=== PATIENT | female | born 1995 | race Caucasian/White ===

== ENCOUNTER 2017-11-02 22:33 | Inpatient (IN) | payer OTHER, SELFPAY ==
[2017-11-02 21:06] VITALS: BMI 26.2
[2017-11-02 21:23] LABS: Bacteria 0 SEEN /hpf (None Seen); Mucous, Urine 0 SEEN /hpf (<or=2+)
[2017-11-02 21:28] LABS: Color, Urine Yellow (Yellow); Glucose, Dipstick Normal (Normal); Ketone-Dipstick 5 mg/dl (Negative); Leukocyte Esterase-Dipstick 25 /ul (Negative); Nitrite-Dipstick Negative (Negative); Occult Blood-Urine 250 /ul (Negative); Protein-Dipstick Negative (Negative); Urine Bilirubin Dipstick Negative (Negative); Urine Clarity Clear (Clear); Urine Urobilinogen Normal (Normal)
[2017-11-02 21:40] LABS: Red Blood Cells-Urine > 100 SEEN /hpf (0-5); White Blood Cells 0-5 SEEN /hpf (0-5)
[2017-11-02 21:41] LABS: Squamous Epithelial Cells - UA 0-5 SEEN /hpf (5-10)
[2017-11-02] MEDS: Lactated Ringers 1,000 ML 50 ML IV (22:45)
[2017-11-02 23:21] LABS: Hematocrit 37.2 % (37-47); Hemoglobin 12.5 g/dl (12.0-15.0); Mean Corp Hgb Conc 33.6 g/gl (32-36); Mean Corpuscular Hgb 29.3 pg (27.0-32.0); Mean Corpuscular Volume 87.1 fL (81-99); Mean Platelet Vol. 9.9 fl (6.2-12.0); Platelet Count 218 K/mm3 (150-450); RBC Distribution Width CV 15.4 % (11.6-14.6); RBC Distribution Width SD 48.6 fl (35.1-43.9); Red Blood Count 4.27 M/mm3 (4.2-5.4); Scan Indicated on CBC? Y/N NO; White Blood Count 14.9 K/mm3 (4.4-11.0)
[2017-11-02] MEDS: DiphenhydrAMINE 50 MG/ML Syringe IV (23:30)
--- NOTE | 2017-11-02 23:42 | PCM.HP.OB ---
- Problem List (1) Positive GBS test Status: Acute (2) Active labor at term Status: Acute History Date of Admission: 11/02/17 Final DAVID: 11/06/17 Final DAVID Source: LMP Gestational age: 39 Weeks and 3 Days History of this : Patient presented to L+D reporting decreased movement and increased pelvic pressure and cramping. Patient found to be 5/80/-2 by SVE and donna q 3-5 minutes on tocometer. 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 since 36 weeks gestation Otherwise noncontributory Allergies cefdinir [From Omnicef] Allergy (Intermediate, Verified 11/02/17 21:07) Hives Vancomycin (on this admission was noted as a allergy) - Hives Current Medications Acetaminophen (Tylenol) 325 - 650 mg PO Q4H PRN PRN PRN Reason: PAIN OR FEVER >100.4F Al Hydroxide/Mg Hydroxide (Mylanta Ii) 15 - 30 ml PO Q4H PRN PRN PRN Reason: INDIGESTION Citric Acid/Sodium Citrate (Bicitra) 30 ml PO UD PRN Diphenhydramine HCl (Benadryl) 50 mg IV X1 ONE Stop: 11/02/17 23:38 Vancomycin HCl (Vancomycin) 1,000 mg in 200 mls @ 200 mls/hr IV Q12H [facility] Last Admin: 11/02/17 22:57 Dose: 200 mls/hr Lactated Ringer's () 1,000 mls @ 50 mls/hr IV .Q20H SCOTT[facility] Nalbuphine HCl (Nubain) 5 - 10 mg IV Q3H PRN PRN PRN Reason: PAIN (4-10/10) Ondansetron HCl (Zofran) 4 mg IV Q8H PRN PRN PRN Reason: NAUSEA Promethazine HCl (Phenergan Iv) 6.25 - 12.5 mg IV Q4H PRN PRN; Protocol PRN Reason: IF NAUSEA PERSISTS Sodium Chloride () 5 - 15 ml IV UD [facility] Smoking Status: Never smoker Alcohol: None Drug Use: none Number of Fetus(es): 1 Review of Systems Constitutional: Denies: Chills, Fever, Weight Change HEENT: Denies: Head Aches, Sinus Congestion, Sinus Drainage Cardiovascular: Denies: Chest Pain, Palpitations Respiratory: Denies: Cough, Shortness of breath at rest, Sputum production Gastrointestinal: Denies: Abdominal Pain, Nausea, Vomiting Genitourinary: Denies: Dysuria, Hematuria Gynecological: Reports: Vaginal bleeding - Bloody show noted. Denies: Vaginal discharge Musculoskeletal: Denies: Joint Pain, Joint Tenderness Skin: Denies: Rash, Wounds Neurological: Denies: Numbness, Tingling, Focal weakness Psychiatric: Denies: Anxiety, Depression, Homicidal Ideations, Suicidal Ideations Hematologic/ Lymphatic: Denies: Easy Bruising, Easy Bleeding Physical Exam Vitals: Seeing Nursing Chart for Vital Signs See [facility] Chart for Labs FHT baseline 125, moderate variability, + accels, no decels Ctx q 3-4 minutes, palpate moderate to strong General: Alert, Oriented x3, No apparent distress Cardiovascular: Regular rate, Regular Rhythm Lungs: Clear to auscultation Abdomen: Bowel Sounds Present, Gravid, Appropriate for Gestational Age Extremities:: No edema Presentation: Cephalic Cervix Dilation (cm): 6 - By nursing exam Station: -2 Effacement (%): 80 Assessment/Plan Active and Suspected Problems Positive GBS test (Acute) Active labor at term (Acute) A: 22 y/o @ 39.3 weeks, Active LAbor, Cat I FHT, GBS positive in urine P: 1) Patient is allergic to Omnicef (HIVES) - no culture and sensitivity done. Vancomycin 1 g IV q 12 hours ordered, patient had allergic reaction HIVES that started with administration of Vancomycin. Vancomycin stopped, 50mg IVP Benadryl given 2) Expectant Labor Management at this time 3) If slowed labor or protracted labor, plan AROM 4) Patient desires NCB at this time - encourage movement, position changes and use of hydrotherapy 5) Reassess cervix in 2-4 hours or with change in maternal status. Cherrie Kidd CNM
--- NOTE | 2017-11-02 23:56 | HP.PCM_ITS ---
- Problem List (1) Positive GBS test Status: Acute (2) Active labor at term Status: Acute History Date of Admission: 11/02/17 Final DAVID: 11/06/17 Final DAVID Source: LMP Gestational age: 39 Weeks and 3 Days History of this : Patient presented to L+D reporting decreased movement and increased pelvic pressure and cramping. Patient found to be 5/80/-2 by SVE and donna q 3-5 minutes on tocometer. 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 since 36 weeks gestation Otherwise noncontributory Allergies cefdinir [From Omnicef] Allergy (Intermediate, Verified 11/02/17 21:07) Hives Vancomycin (on this admission was noted as a allergy) - Hives Current Medications Acetaminophen (Tylenol) 325 - 650 mg PO Q4H PRN PRN PRN Reason: PAIN OR FEVER >100.4F Al Hydroxide/Mg Hydroxide (Mylanta Ii) 15 - 30 ml PO Q4H PRN PRN PRN Reason: INDIGESTION Citric Acid/Sodium Citrate (Bicitra) 30 ml PO UD PRN Diphenhydramine HCl (Benadryl) 50 mg IV X1 ONE Stop: 11/02/17 23:38 Vancomycin HCl (Vancomycin) 1,000 mg in 200 mls @ 200 mls/hr IV Q12H [facility] Last Admin: 11/02/17 22:57 Dose: 200 mls/hr Lactated Ringer's () 1,000 mls @ 50 mls/hr IV .Q20H [facility] Nalbuphine HCl (Nubain) 5 - 10 mg IV Q3H PRN PRN PRN Reason: PAIN (4-10/10) Ondansetron HCl (Zofran) 4 mg IV Q8H PRN PRN PRN Reason: NAUSEA Promethazine HCl (Phenergan Iv) 6.25 - 12.5 mg IV Q4H PRN PRN; Protocol PRN Reason: IF NAUSEA PERSISTS Sodium Chloride () 5 - 15 ml IV UD [facility] Smoking Status: Never smoker Alcohol: None Drug Use: none Number of Fetus(es): 1 Review of Systems Constitutional: Denies: Chills, Fever, Weight Change HEENT: Denies: Head Aches, Sinus Congestion, Sinus Drainage Cardiovascular: Denies: Chest Pain, Palpitations Respiratory: Denies: Cough, Shortness of breath at rest, Sputum production Gastrointestinal: Denies: Abdominal Pain, Nausea, Vomiting Genitourinary: Denies: Dysuria, Hematuria Gynecological: Reports: Vaginal bleeding - Bloody show noted. Denies: Vaginal discharge Musculoskeletal: Denies: Joint Pain, Joint Tenderness Skin: Denies: Rash, Wounds Neurological: Denies: Numbness, Tingling, Focal weakness Psychiatric: Denies: Anxiety, Depression, Homicidal Ideations, Suicidal Ideations Hematologic/ Lymphatic: Denies: Easy Bruising, Easy Bleeding Physical Exam Vitals: Seeing Nursing Chart for Vital Signs See [facility] Chart for Labs FHT baseline 125, moderate variability, + accels, no decels Ctx q 3-4 minutes, palpate moderate to strong General: Alert, Oriented x3, No apparent distress Cardiovascular: Regular rate, Regular Rhythm Lungs: Clear to auscultation Abdomen: Bowel Sounds Present, Gravid, Appropriate for Gestational Age Extremities:: No edema Presentation: Cephalic Cervix Dilation (cm): 6 - By nursing exam Station: -2 Effacement (%): 80 Assessment/Plan Active and Suspected Problems Positive GBS test (Acute) Active labor at term (Acute) A: 22 y/o @ 39.3 weeks, Active LAbor, Cat I FHT, GBS positive in urine P: 1) Patient is allergic to Omnicef (HIVES) - no culture and sensitivity done. Vancomycin 1 g IV q 12 hours ordered, patient had allergic reaction HIVES that started with administration of Vancomycin. Vancomycin stopped, 50mg IVP Benadryl given 2) Expectant Labor Management at this time 3) If slowed labor or protracted labor, plan AROM 4) Patient desires NCB at this time - encourage movement, position changes and use of hydrotherapy 5) Reassess cervix in 2-4 hours or with change in maternal status. Cherrie Kidd CNM
[2017-11-03] MEDS: Lactated Ringers 1,000 ML 50 ML IV ×2 (00:46→05:41)
--- NOTE | 2017-11-03 04:24 | PCM.PN.BLA ---
Progress Note S: Patient rested throughout the night after Benadryl administration. Patient then tried sitting in the tub. Contractions were perceived by nursing staff to have spaced out. Decision made to do SVE at this time. Patient's family remains at bedside providing support for patient. O: VSS, Afebrile FHT baseline 135, moderate variability, + accels, no decels Ctx q 5-7 minutes, palpate moderate to strong SVE = 6/80/-1, unchanged from last exam. BBOW A: 22 y/o , Protracted Active Phase of Labor, Category I FHT P: 1) Options for labor progression discussed including natural methods (movement, position changes, etc), AROM or initiation of pitocin. R/B of each option discussed. 2) Patient elects AROM with ambulation - AROM for small clear fluid noted 3) Encourage ambulation, PO hydration. Patient may use tub after AROM completed PRN. 4) Repeat SVE in 2-4 hours time or PRN Cherrie Kidd CNM
--- NOTE | 2017-11-03 04:31 | PN_ITS ---
Progress Note S: Patient rested throughout the night after Benadryl administration. Patient then tried sitting in the tub. Contractions were perceived by nursing staff to have spaced out. Decision made to do SVE at this time. Patient's family remains at bedside providing support for patient. O: VSS, Afebrile FHT baseline 135, moderate variability, + accels, no decels Ctx q 5-7 minutes, palpate moderate to strong SVE = 6/80/-1, unchanged from last exam. BBOW A: 22 y/o , Protracted Active Phase of Labor, Category I FHT P: 1) Options for labor progression discussed including natural methods ( movement, position changes, etc), AROM or initiation of pitocin. R/B of each option discussed. 2) Patient elects AROM with ambulation - AROM for small clear fluid noted 3) Encourage ambulation, PO hydration. Patient may use tub after AROM completed PRN. 4) Repeat SVE in 2-4 hours time or PRN Cherrie Kidd CNM
--- NOTE | 2017-11-03 05:36 | PCM.PN.BLA ---
Progress Note Addendum: Update from nursing staff, patient is now 9cm and feeling increasing urge to bear down. Family remains at bedside supporting patient. PAtient coping well with contractions. Will continue expectant management. Cherrie Kidd CNM
--- NOTE | 2017-11-03 06:32 | PCM.PN.BLA ---
Progress Note Patient starting to feel urge to bear down, SVE = 9.5/100/0 to +1 with pushing effort. Patient's family and FOB remain at bedside providing support. Patient in labor tub and rocking with contractions. Patient reporting I want something for pain. Discussion about pain management options at this juncture of labor discussed. Discussed that labor likely will not get more intense than it is currently and that there are limitations with epidural where she may not get full effect of the medication at this time of labor. Patient reports an understanding. Has decided to continue in labor tub at this time breathing and spontaneously bearing down when she has an urge. Anticipate . Cherrie Kidd CNM
[2017-11-03] MEDS: Oxytocin 10 UNITS/ML Vial IM (08:14)
--- NOTE | 2017-11-03 08:52 | PCM.OB.VAG ---
- Problem List (1) Positive GBS test Status: Resolved (2) Active labor at term Status: Resolved (3) Shoulder dystocia during labor and delivery, delivered Status: Resolved (4) Perineal laceration during delivery, delivered Status: Resolved Vaginal Delivery Maternal Presentation: Active Labor Patient presented last night at 39.3wks reporting decreased movement, cramping and pelvic pressure. Patient was found to be 5/80/-2 and then made cervical change to 6/80/-2. Patient labor course was uncomplicated. Amniotic Membrane Rupture Type: Artificial Amniotic Fluid Description: Clear Final DAVID: 11/06/17 Gestational age: 39 Weeks and 4 Days doctor who attended delivery (if requested by OB): Viktoria Hairston Date of Procedure: 11/03/17 Pre-Operative Diagnosis: Active Labor Post-Operative Diagnosis: with Shoulder Dystocia Surgery/ Procedure Performed: Spontaneous Vaginal Delivery Type of Anesthesia: None, Local with 1% lidocaine Description of Procedure: Patient pushed well in left side-lying position to crown. Head delivered atraumatically followed by a delay of delivery of shoulders. Attempt of Etienne with Suprapubic pressure by nursing staff, no resolution. Patient flipped to H+K position and first attempt at delivery of posterior arm made that was unsuccessful. Patient flipped back to Etienne with suprapubic pressure. At this point additional nursing and OB provider assistance called to delivery. Dr. Syed AMATO and Nupur Parrish CNM to room. Lt. Mediolateral episiotomy cut and [place] with delivery of posterior arm yielded delivery of baby. Total time elapsed 2 minutes 4 seconds. See Shoulder Dystocia sheet. Terminal meconium noted. initially with poor tone and color. No evidence of respirations. Umbilical cord immediately clamped and cut and baby taken to warmer for evaluation and resuscitative measures. Apgars 6 and 8. Cord gases sent. Weight pending. Placenta delivered spontaneously via Stewart mechanism intact with 3VC. FF midline 1FB below umbilicus to massage. 10 U IM pitocin given as patient's IV came out during labor. Upon inspection of vaginal vault deep 2nd degree vaginal/perineal laceration. Reinforcement of rectal sphincter done by Dr. Syed AMATO, remainder of repair done in the usual fashion under Nitrous Oxide analgesia and using 2 and 3-0 vicryl suture respectively and 1% Lidocaine. Sponge and needle count correct. Vaginal sweep negative. [id number] and bonding initiated. Ice pack to perineum. encouraged. Cherrie YUSUFM Presentation: Vertex Placental Delivery Description: Spontaneous Placenta Disposition: [facility] Cord Vessel Description: 3 Vessels Cord Gases drawn per routine: ABG, VBG Cord Entanglement: None Estimated Blood Loss: 250 A gender: Female (1 minute): 6 (5 minute): 8 Episiotomy Description: Left Mediolateral, Perineal Extension/lac, 2nd degree, 3rd degree - Deep 2nd degree laceration, reinforcement of rectal sphincter by Dr. Lynch Laceration: Vaginal Extension/lac, 2nd degree Medications given after delivery: - - IM Pitocin Complications: - - Shoulder Dystocia - see Shoulder Dystocia Sheet
--- NOTE | 2017-11-03 09:14 | OP.PCM_ITS ---
- Problem List (1) Positive GBS test Status: Resolved (2) Active labor at term Status: Resolved (3) Shoulder dystocia during labor and delivery, delivered Status: Resolved (4) Perineal laceration during delivery, delivered Status: Resolved Vaginal Delivery Maternal Presentation: Active Labor Patient presented last night at 39.3wks reporting decreased movement, cramping and pelvic pressure. Patient was found to be 5/80/-2 and then made cervical change to 6/80/-2. Patient labor course was uncomplicated. Amniotic Membrane Rupture Type: Artificial Amniotic Fluid Description: Clear Final DAVID: 11/06/17 Gestational age: 39 Weeks and 4 Days doctor who attended delivery (if requested by OB): Viktoria Hairston Date of Procedure: 11/03/17 Pre-Operative Diagnosis: Active Labor Post-Operative Diagnosis: with Shoulder Dystocia Surgery/ Procedure Performed: Spontaneous Vaginal Delivery Type of Anesthesia: None, Local with 1% lidocaine Description of Procedure: Patient pushed well in left side-lying position to crown. Head delivered atraumatically followed by a delay of delivery of shoulders. Attempt of Etienne with Suprapubic pressure by nursing staff, no resolution. Patient flipped to H+K position and first attempt at delivery of posterior arm made that was unsuccessful. Patient flipped back to Etienne with suprapubic pressure. At this point additional nursing and OB provider assistance called to delivery. Dr. Syed AMATO and Nupur Parrish CNM to room. Lt. Mediolateral episiotomy cut and [place] with delivery of infant posterior arm yielded delivery of baby. Total time elapsed 2 minutes 4 seconds. See Shoulder Dystocia sheet. Terminal meconium noted. Infant initially with poor tone and color. No evidence of respirations. Umbilical cord immediately clamped and cut and baby taken to warmer for evaluation and resuscitative measures. Apgars 6 and 8. Cord gases sent. Weight pending. Placenta delivered spontaneously via Stewart mechanism intact with 3VC. FF midline 1FB below umbilicus to massage. 10 U IM pitocin given as patient's IV came out during labor. Upon inspection of vaginal vault deep 2nd degree vaginal/perineal laceration. Reinforcement of rectal sphincter done by Dr. Syed AMATO, remainder of repair done in the usual fashion under Nitrous Oxide analgesia and using 2 and 3-0 vicryl suture respectively and 1% Lidocaine. Sponge and needle count correct. Vaginal sweep negative. Skin-to- skin and bonding initiated. Ice pack to perineum. encouraged. Cherrie YUSUFM Presentation: Vertex Placental Delivery Description: Spontaneous Placenta Disposition: [facility] Cord Vessel Description: 3 Vessels Cord Gases drawn per routine: ABG, VBG Cord Entanglement: None Estimated Blood Loss: 250 A gender: Female (1 minute): 6 (5 minute): 8 Episiotomy Description: Left Mediolateral, Perineal Extension/lac, 2nd degree, 3rd degree - Deep 2nd degree laceration, reinforcement of rectal sphincter by Dr. Lynch Laceration: Vaginal Extension/lac, 2nd degree Medications given after delivery: - - IM Pitocin Complications: - - Shoulder Dystocia - see Shoulder Dystocia Sheet
--- NOTE | 2017-11-03 09:24 | DCINST_ITS ---
Discharge Diet: No Restrictions Discharge Activity: Return to Normal Activity, May not drive while taking narcotic pain medications., May Shower May resume sexual activity in: 4-6 weeks Additional Activity Instructions:: Nothing in the vagina for 4-6 weeks. You may return to work/school in 6 weeks. Call your doctor if your incision/area has: Continuous Slow Oozing, Sudden Increased Bleeding, Increased Pain/ Swelling, Increased Redness, Foul Smelling Discharge Call your doctor if you observe: Fever of 101 or Higher, Inability to urinate, Inability to have a bowel movement, Using more than one pad per hour, Uncontrolled pain Additional Instructions: If you experience any of the following, contact your healthcare provider. * Bleeding that soaks a pad every hour for 2 hours * Fever 100.4 or higher * Unrelieved incision or abdominal pain * Swelling, redness, discharge or bleeding from your incision or episiotomy site * Your incision begins to separate * Problems urinating (including inability to urinate or burning while urinating) . * Visual changes * Severe headache * Flu-like symptoms * Pain or redness in one of both of your breasts * Pain, warmth, tenderness or swelling in your legs, especially the calf area * Frequent nausea and vomiting * Symptoms of depression or anxiety If you experience any of the following, call 911 or go to the nearest Emergency Room. * Chest pain * Problems breathing * Seizure activity * Partial or complete paralysis of a body part, slurred speech, weakness or drooping of the face, or a sudden inability to walk or hold your balance Allergies/Adverse Reactions: Allergies cefdinir [From Omnicef] Allergy (Intermediate, Verified 11/02/17 21:07) Hives Medications to take at Discharge Ferrous Sulfate 325 mg PO DAILY 11/02/17 Valacyclovir HCl [Valtrex] 500 mg PO BID 11/02/17 Orders to be completed after discharge: Electric breast pump Location: None Selected Please Follow Up With: Cherrie Kidd CNM When: Call to make an appointment with your doctor in 6 weeks. If you had elevated Blood Pressure or 4th degree laceration you will need to be seen in 2 weeks. Primary Care Physician: Care Physician,No Primary [Primary Care Provider] - Proposed Discharge Date: 11/05/17
[2017-11-03] MEDS: Ibuprofen 600 MG Tablet PO ×2 (09:43→17:29)
[2017-11-03] MEDS: Dibucaine 30 GM Tube 1 APPLIC TOPICAL (09:43)
[2017-11-03] MEDS: Methylergonovine 0.2 MG/ML Ampul IM (09:44)
[2017-11-03] MEDS: Acetaminophen 500 MG Tablet 1000 MG PO ×2 (12:11→20:17)
[2017-11-03] MEDS: Ferrous Sulfate 325 MG Tablet PO (12:12)
[2017-11-03] MEDS: Senna/Docusate Sodium 1 Tablet PO (12:12)
[2017-11-03 12:23] VITALS: BP 118/64; PULSE 76; RESP 14; TEMP 37.3; O2SAT 97
--- NOTE | 2017-11-03 14:29 | NURSING ---
This nursing instructed reviewed the charting completed by Corine Madera, student nurse.
[2017-11-03 17:33] VITALS: BP 112/69; PULSE 78; RESP 16; TEMP 37
[2017-11-03 20:18] VITALS: BP 114/60; PULSE 78; RESP 18; TEMP 37
[2017-11-04] MEDS: Ibuprofen 600 MG Tablet PO ×3 (00:30→17:12)
[2017-11-04 00:32] VITALS: BP 100/50; PULSE 71; RESP 18; TEMP 37.2
[2017-11-04] MEDS: Acetaminophen 500 MG Tablet 1000 MG PO ×2 (05:01→19:54)
[2017-11-04 05:03] VITALS: BP 108/53; PULSE 78; RESP 18; TEMP 36.7
[2017-11-04 06:02] LABS: Hematocrit 35.6 % (37-47); Hemoglobin 11.7 g/dl (12.0-15.0); Mean Corp Hgb Conc 32.9 g/gl (32-36); Mean Corpuscular Volume 88.3 fL (81-99); Mean Platelet Vol. 9.9 fl (6.2-12.0); Platelet Count 204 K/mm3 (150-450); RBC Distribution Width CV 15.8 % (11.6-14.6); RBC Distribution Width SD 50.8 fl (35.1-43.9); Red Blood Count 4.03 M/mm3 (4.2-5.4); White Blood Count 14.9 K/mm3 (4.4-11.0)
[2017-11-04 06:20] LABS: Scan Indicated on CBC? Y/N NO
--- NOTE | 2017-11-04 07:55 | PCM.PROGNOTE ---
Subjective: Doing well per patient and nursing staff. without difficulty. Ambulating and taking PO without difficulty. Voiding and passing flatus. Denies any headache, visual changes, chest pain, shortness of breath, increased vaginal bleeding or clots. Motrin and Tylenol effective for pain. Planning D/C home tomorrow. - Physical Exam General: Alert, Oriented x3, Cooperative Lungs: Clear to auscultation, No rhonchi, No wheeze Cardiovascular: Regular rate, Regular Rhythm, No murmurs Abdomen: Bowel Sounds Present, Soft, Non Tender Extremities: No edema Psych/Mental Status: Normal Affect, Appropriate Vital Signs Temp Pulse Resp BP Pulse Ox 98.1 F 78 18 108/53 L 97 11/04/17 05:03 11/04/17 05:03 11/04/17 05:03 11/04/17 05:03 11/03/17 12:23 Oxygen Delivery Method Room Air Weight: 141 lb 1.533 oz Body Mass Index (BMI) 26.2 Intake and Output for Last 24 Hours 11/02/17 11/03/17 11/04/17 23:59 23:59 23:59 Output Total 50 / 50 Balance -50 / -50 Laboratory Tests Past 24 Hrs 11/04/17 05:15 WBC 14.9 H RBC 4.03 L Hgb 11.7 L Hct 35.6 L MCV 88.3 MCH 29.0 MCHC 32.9 RDW 15.8 H RDW Differential 50.8 H Plt Count 204 MPV 9.9 Medical Necessity - Tobacco Use Smoking Status: Never smoker Assessment/Plan A: PPD#1 with should dystocia P: 1) Routine PP care 2) Planning D/C home tomorrow
[2017-11-04 08:00] VITALS: BP 111/66; PULSE 90; RESP 16; TEMP 36.4
[2017-11-04] MEDS: Ferrous Sulfate 325 MG Tablet PO (08:58)
[2017-11-04] MEDS: Senna/Docusate Sodium 1 Tablet PO (08:59)
[2017-11-04 14:00] VITALS: BP 96/55; PULSE 74; RESP 16; TEMP 37
[2017-11-04 19:45] VITALS: BP 111/58; PULSE 86; RESP 18; TEMP 36.9; O2SAT 97
[2017-11-05] MEDS: Ibuprofen 600 MG Tablet PO ×2 (01:59→08:38)
[2017-11-05 02:12] VITALS: BP 128/88; PULSE 88; RESP 16; TEMP 36.7; O2SAT 97
[2017-11-05] MEDS: Acetaminophen 500 MG Tablet 1000 MG PO (05:43)
[2017-11-05] MEDS: Ferrous Sulfate 325 MG Tablet PO (08:38)
[2017-11-05] MEDS: Senna/Docusate Sodium 1 Tablet PO (08:38)
[2017-11-05 08:46] VITALS: BP 126/71; PULSE 95; RESP 16; TEMP 36.8; O2SAT 99
--- NOTE | 2017-11-05 08:58 | PCM.PROGNOTE ---
Subjective: Patient ambulating around room, holding baby. Denies any issues with , reports +transitional milk. PAtient desires discharge to home today. Objective: Gait without abnormalities Scant rubra lochia noted Perineum well-approximated - Physical Exam General: Alert, Oriented x3, Cooperative HEENT: Atraumatic, Normocephalic Lungs: Clear to auscultation, Normal air movement Cardiovascular: Regular rate, Regular Rhythm, No murmurs Abdomen: Soft, Non Tender, Non-Distended Extremities: No edema, Capillary Refill Less than 3 Seconds, No Calf Tenderness, Peripheral Pulses Normal Skin: No rashes, No breakdown Musculoskeletal: No Tenderness to Palpation of Joints or Extremities Neurological: Cranial nerves II-XII grossly intact Psych/Mental Status: Normal Affect, Appropriate, Alert and oriented to time, place, person, mood and affect Vital Signs Temp Pulse Resp BP Pulse Ox 98.2 F 95 16 126/71 H 99 11/05/17 08:46 11/05/17 08:46 11/05/17 08:46 11/05/17 08:46 11/05/17 08:46 Oxygen Delivery Method Room Air Weight: 141 lb 1.533 oz Body Mass Index (BMI) 26.2 Intake and Output for Last 24 Hours 11/03/17 11/04/17 11/05/17 23:59 23:59 23:59 Output Total 50 / 50 Balance -50 / -50 Medical Necessity - Tobacco Use Smoking Status: Never smoker Tobacco Use: Non-smoker Assessment/Plan A: 22 y/o , with complication of shoulder dystocia, PPD #1, Normal Course P: 1) Discharge to home pending discharge 2) RTC in 6 weeks with visit with [facility] Cherrie Kidd CNM
== END 2017-11-05 10:50 | disposition home or self-care (01) | DRG 775 ==
LOC: WPOUT 22:48
PROVIDERS: Advanced Practice Midwife; Admitting Provider Obstetrics & Gynecology; Visit Provider Obstetrics & Gynecology
DX: O36.8130 Decreased fetal movements, third trimester, not applicable or unspecified (principal); O99.824 Streptococcus B carrier state complicating childbirth; O70.1 Second degree perineal laceration during delivery; O66.0 Obstructed labor due to shoulder dystocia; Z37.0 Single live birth; Z3A.39 39 weeks gestation of pregnancy
CPT/HCPCS: 59025; 59050; 81001; 85027; 86850; 86900; 99218; J7120; G0378

== ENCOUNTER 2019-07-02 05:05 | Inpatient (IN) | payer MEDICAID, SELFPAY ==
--- NOTE | 2019-06-29 10:36 | HP.PCM_ITS ---
History and Physical Date of Admission: 07/02/19 Esha Lynch Physician SHIPPING SUPPORT CLERK H&P Signed Encounter Date: 06/29/2019 Expand All Collapse All Hide copied text Hover for details Pamela Gay is a 23 year old female who presents for pre op for primary cs due to h/o shoulder dystocia. EFW approximately same as previous child. Pt declines vaginal delivery. Pt denies concerns today. ? PAST MEDICAL HISTORY PAST MEDICAL HISTORY Diagnosis Date ? HSV (herpes simplex virus) infection 11/2015 ? genital lesions ? PAST SURGICAL HISTORY PAST SURGICAL HISTORY Procedure Laterality Date ? NONE ? ? ? FAMILY HISTORY FAMILY HISTORY Problem Relation Age of Onset ? Breast Cancer Maternal Grandmother ? ? SOCIAL HISTORY Social History ? Tobacco Use ? Smoking status: Never Smoker ? Smokeless tobacco: Never Used Substance Use Topics ? Alcohol use: No ? Drug use: No ? CURRENT MEDICATIONS Current Outpatient Medications Medication Sig ? acyclovir (ZOVIRAX) 400 mg tablet Take 1 tablet by mouth twice daily. ? [id number]-Aht-Fe-[id number] tab Take 1 tablet by mouth once daily. ? No current facility-administered medications for this visit. ? Allergies As of Date: 06/29/2019 Allergen Noted Reaction OMNICEF [CEFDINIR] 03/11/2014 Hives VANCOMYCIN 11/11/2017 Itching ? Fully Assessed 06/29/2019 ? ? REVIEW OF SYSTEMS Abdomen: no pain Bladder: no dysuria.. Expanded ROS: GENERAL: Negative for fever Allergies and current medication updated:Yes ? EXAM: BP 100/60 Wt 142 lb (64.4kg) LMP 09/25/2018 ? GENERAL: pleasant, female in no apparent distress HEENT: Normocephalic and atraumatic NECK: full range of motion DERMATOLOGY: Normal, without lesions, non-icteric and non-hirsute CARDIAC: regular rate and rhythm CHEST: Clear to auscultation Normal inspiratory effort ABDOMEN: soft, non-tender and gravid, PELVIC: deferred BIMANUAL: deferred NEURO: alert and oriented x3,exam grossly non-focal EXTREMITIES: normal ? ASSESSMENT AND PLAN: Encounter Diagnosis ? ? ICD-10-CM ? 1. Visit for screening Z36.9 URINE OB DIP B/O 2. 38 weeks gestation of Z3A.38 URINE OB DIP B/O ? 3. Pt has been counseled on risks/benefits and alternatives of surgery including but not limited to anesthesia, bleeding, infection, injury to pelvic structures including bowel, bladder, ureters and vessels. Pt wishes to proceed with surgery at this time. 4. Consent signed. ? Esha Steve MD ?
[2019-07-02] VITALS (22 sets, daily range): BP systolic 93–121; BP diastolic 33–76; PULSE 68–99; RESP 14–20; TEMP 36.4–37.3; O2SAT 98–100; BMI 26.4
[2019-07-02] MEDS: Lactated Ringers 1,000 ML 999 ML IV (05:45)
[2019-07-02 06:14] LABS: Absolute Lymphocyte Count 2.45 X10^3/uL (0.83-4.51); Absolute Neutrophil Count 8.7 X10^3/uL (2.0-7.7); Basophil# 0.04 X10^3/uL; Basophil% 0.3 % (0-1); Eosinophil# 0.03 X10^3/uL; Eosinophils% 0.2 % (0-5); Hematocrit 32.4 % (37-47); Hemoglobin 10.6 g/dL (12.0-15.0); Lymphocyte # 2.45 X10^3/ul (4.0); Mean Corp Hgb Conc 32.7 g/dL (32-36); Mean Corpuscular Hgb 27.2 pg (27.0-32.0); Mean Corpuscular Volume 83.1 fL (81-99); Mean Platelet Vol. 9.9 fl (6.2-12.0); Monocyte# 0.87 X10^3/uL; Monocyte% 7.1 % (0-10); NRBC Flagged by Analyzer 0 % (0-5); Neutrophil % 71.3 % (47-70); Platelet Count 217 K/mm3 (150-450); RBC Distribution Width CV 12.9 % (11.6-14.6); RBC Distribution Width SD 38.7 fl (35.1-43.9); White Blood Count 12.2 K/mm3 (4.4-11.0)
[2019-07-02 06:24] LABS: Amphetamine Urine VISTA NEGATIVE (<1000 ng/mL); Barbiturate Urine VISTA NEGATIVE (< 200 ng/mL); Benzodiazepine Urine VISTA NEGATIVE (< 200 ng/mL); Cocaine Urine VISTA NEGATIVE (< 300 ng/mL); Ecstacy Urine VISTA NEGATIVE (< 500 ng/mL); Methadone Urine VISTA NEGATIVE (< 300 ng/mL); PCP Urine VISTA NEGATIVE (< 25 ng/mL); THC Urine VISTA NEGATIVE (< 50 ng/mL); Vista UDS pH Range 6
[2019-07-02] MEDS: Lactated Ringers 1,000 ML 150 ML IV (06:50)
[2019-07-02] MEDS: Sodium Citrate/Citric Acid 30 ML UDC PO (07:20)
[2019-07-02] MEDS: Cefazolin 2 GM in 0.9% Normal Saline 100 ML IV (07:27)
--- NOTE | 2019-07-02 08:23 | PCM.OPRPT ---
Delivery Classification: Scheduled Final DAVID: 07/09/19 Gestational age: 39 Weeks and 0 Days Type of Anesthesia:: Spinal Special Medications: none Implants Used: none Date of Procedure: 07/02/19 Pre-Operative Diagnosis: term gestation, elective primary cs for h/o shoulder dystocia Post-Operative Diagnosis: live male Indications: History of shoulder dystocia, term gestation, elective primary cs Description of Procedure: After informed consent was obtained the patient was taken the operating room she was given spinal anesthesia. She was then placed in the supine position. She was prepped and draped in the normal sterile fashion. Anesthesia was found to be adequate. At this time a Pfannenstiel skin incision was made with a knife was carried down to the underlying layer of the fascia. The fascial incision was then extended laterally using curved Stephens scissor. Attention was then turned to the superior aspect of the fascial edge was grasped with 2 straight Margarita clamps tented up and the rectus muscle dissected off sharply using curved Stephens scissor. Attention was then turned to the inferior aspect where again [place] clamps were placed in the rectus muscles were tented up and the fascia was dissected off sharply using the curved Setphens scissor. Rectus muscles were then in the midline bluntly and peritoneum was entered bluntly. Gentle opposing traction was placed. At this time the vesicouterine peritoneum was identified. Scalpel was used to make a uterine incision in a low transverse fashion. The uterus was then entered bluntly gentle opposing traction was placed to extend this incision. Membranes were ruptured clear. 's head was brought to the uterine incision was delivered atraumatically. dealyed cord clamping performed. Cord was clamped and cut was handed to the waiting nursery team. The Placenta was removed from the uterus. The uterus was then removed from the abdominal cavity. The uterus was cleared of all clots and debris using a lap. At this time the uterine incision was reapproximated using #1 Vicryl in a running locked fashion. Hemostasis was appreciated. Posterior cul-de-sac was then cleared of all clots and debris. Uterus was placed back in the abdominal cavity. Gutters were cleared of all clots and debris. Uterine incision was reevaluated and noted to be of excellent hemostasis. Lizzeth placed. At this time the peritoneum and muscle were grasped with Kellys reapproximated using #2 Vicryl suture in a running fashion. Fascia was then reapproximated using #1 Vicryl in a running fashion. Subcu layer was reapproximated with #2 0 plain gut suture in an interrupted fashion. Subcu layer was closed using 4-0 Monocryl in a subcu fashion. Dry sterile dressing was applied. Instrument lap needle count correct ?2. Anticipated normal postoperative course. Amniotic Membrane Rupture Type: Artificial Amniotic Fluid Description: Clear Placenta Disposition: [facility] Drain: Titus to straight drain Fluids Replaced: 1000 Cord Entanglement: None Cord Vessel Description: 3 Vessels Esitmated Blood Loss (ml): 600 Infant Gender: Male (1 minute): 9 (5 minute): 9 Delayed cord clamping: Yes Antibiotic Given: Ancef 2 grams IV x1 Pt instructed on risks of surgery: Bleeding, Anesthesia Risks, Infection, Injury to surrounding structure(s) including bowel and bladder Complications: None - Admit VTE Documentation VTE Present on Admission: Yes VTE Mechan Device Prophylaxis: SCD's VTE Pharm Prophylaxis ordered?: No
[2019-07-02] MEDS: Oxytocin 30 units/NS 500 ml 30 UNITS/500 ML IV.SOLN 167 UNITS IV (08:30)
[2019-07-02] MEDS: Lactated Ringers 1,000 ML 100 ML IV (12:11)
[2019-07-02] MEDS: Ketorolac 30 MG/ML Syringe IV ×2 (13:58→19:39)
--- NOTE | 2019-07-02 17:01 | CASEMGMT ---
Social work Labor and Delivery Social work consulted received today from nursing staff regarding first trimester drug screen for marijuana. Chart reviewed, noted that maternal and screens are negative at time of delivery. Met with mother of baby for assessment this date. Full assessment to follow in the chart. Plan: MOB and baby to home. MOB plans to abstain from future marijuana use. MOB has been provided with resources for mood and anxiety disorders. -MAURICIO Mayberry, DAIRY AND FOOD LABORATORY ASSISTANT
[2019-07-02] MEDS: 0.9% Saline Lock 10 ML Syringe IV (19:40)
[2019-07-02] MEDS: Senna/Docusate Sodium 1 Tablet PO (23:21)
[2019-07-03] VITALS (8 sets, daily range): BP systolic 110–114; BP diastolic 50–68; PULSE 68–91; RESP 15–18; TEMP 36.5–37.2; O2SAT 97–100
[2019-07-03] MEDS: Ketorolac 30 MG/ML Syringe IV ×4 (01:29→19:49)
[2019-07-03] MEDS: 0.9% Saline Lock 10 ML Syringe IV ×3 (01:30→19:50)
[2019-07-03 06:29] LABS: Hematocrit 27.7 % (37-47); Hemoglobin 9.1 g/dL (12.0-15.0); Mean Corp Hgb Conc 32.9 g/dL (32-36); Mean Corpuscular Hgb 27.9 pg (27.0-32.0); Mean Platelet Vol. 9.9 fl (6.2-12.0); Platelet Count 185 K/mm3 (150-450); RBC Distribution Width CV 13.1 % (11.6-14.6); RBC Distribution Width SD 39.8 fl (35.1-43.9); Red Blood Count 3.26 M/mm3 (4.2-5.4)
[2019-07-03] MEDS: Acetaminophen 500 MG Tablet 1000 MG PO ×2 (11:57→21:04)
--- NOTE | 2019-07-03 12:38 | PCM.PN.OB ---
Subjective: Doing well per patient and nursing staff. Ambulating and taking PO without difficulty. Voiding and passing flatus. Pain controlled. without difficulty. Planning D/C home tomorrow. - Physical Exam Vitals/I&O's: Vital Signs Temp Pulse Resp BP Pulse Ox 97.9 F 75 16 110/64 100 07/03/19 08:25 07/03/19 08:25 07/03/19 08:25 07/03/19 08:25 07/03/19 08:25 Oxygen Delivery Method Room Air Weight: 140 lb Body Mass Index (BMI) 26.4 Intake and Output for Last 24 Hours 07/01/19 07/02/19 07/03/19 23:59 23:59 23:59 Intake Total 4802.5 / 4802.5 Output Total 3950 / 3950 Balance 852.5 / 852.5 General: Alert, Oriented x3, Cooperative HEENT: Atraumatic, Normocephalic Neck: Trachea Midline Lungs: Clear to auscultation, Normal air movement, No rhonchi, No wheeze Cardiovascular: Regular rate, Regular Rhythm, No murmurs Abdomen: Bowel Sounds Present, Soft - Fundus firm 2 below U. Dressing dry and intact Extremities: No edema Psych/Mental Status: Normal Affect, Appropriate Laboratory Results 07/03/19 06:15: WBC 14.0 H, RBC 3.26 L, Hgb 9.1 L, Hct 27.7 L, MCV 85.0, MCH 27.9, MCHC 32.9, RDW Std Deviation 39.8, RDW Coeff of Ziyad 13.1, Plt Count 185, MPV 9.9 Current Medications Acetaminophen (Tylenol) 1,000 mg PO Q8H PRN PRN Reason: Pain Score 1-3/10 Last Admin: 07/03/19 11:57 Dose: 1,000 mg Documented by: Bisacodyl (Dulcolax) 10 mg RECTAL UD PRN PRN Reason: If no BM Hydrocortisone (Hytone) 1 applic TOPICAL TID PRN PRN; Protocol PRN Reason: Discomfort Lactated Ringer's () 1,000 mls @ 100 mls/hr IV .Q10H SCOTTIE Last Admin: 07/03/19 04:52 Dose: Not Given Documented by: Naloxone HCl 4 mg/ Dextrose 504 mls @ 0 mls/hr IV .Q0M PRN; Protocol PRN Reason: Respiratory depression Ibuprofen (Motrin) 600 mg PO Q6H PRN PRN PRN Reason: Pain Score 1-3/10 Ketorolac Tromethamine (Toradol) 30 mg IV Q6H SCOTTIE Stop: 07/04/19 08:01 Last Admin: 07/03/19 07:23 Dose: 30 mg Documented by: Methylergonovine Maleate (Methergine) 0.2 mg IM X1 PRN PRN Reason: Uterine Atony Naloxone HCl (Narcan) 0.02 mg IV Q1M PRN PRN Reason: RR <10 and pt unresponsive Ondansetron HCl (Zofran) 4 mg IV Q4H PRN PRN PRN Reason: Nausea Oxycodone HCl (Oxyir) 5 - 10 mg PO Q4H PRN PRN PRN Reason: Pain Score 4-10/10 Prochlorperazine Edisylate (Compazine Iv) 10 mg IV Q6H PRN PRN PRN Reason: NAUSEA Senna/Docusate Sodium (Senokot-S, Trixie-Colace) 0 tablet PO DAILY PRN PRN Reason: Constipation Last Admin: 07/02/19 23:21 Dose: 1 tablet Documented by: Simethicone (Mylicon) 80 mg PO PCHS PRN PRN Reason: Indigestion/stomach pain Sodium Chloride () 5 - 15 ml IV UD PRN PRN Reason: SALINE FLUSH Last Admin: 07/03/19 07:23 Dose: 10 ml Documented by: Medical Necessity - Tobacco Use Smoking Status: Never smoker Assessment/Plan All Active Problems Positive GBS test (Resolved) Active labor at term (Resolved) Shoulder dystocia during labor and delivery, delivered (Resolved) Perineal laceration during delivery, delivered (Resolved) A:POD #1 P: 1) Routine post op care. support. 2) Pain management 3) Planning D/C home tomorrow
[2019-07-03] MEDS: Senna/Docusate Sodium 1 Tablet PO (21:05)
[2019-07-04 01:00] VITALS: BP 112/62; PULSE 80; RESP 18; TEMP 36.9; O2SAT 98
[2019-07-04] MEDS: 0.9% Saline Lock 10 ML Syringe IV ×2 (01:29→07:54)
[2019-07-04] MEDS: Ketorolac 30 MG/ML Syringe IV ×2 (01:29→07:54)
[2019-07-04] MEDS: Acetaminophen 500 MG Tablet 1000 MG PO (06:39)
[2019-07-04 09:00] VITALS: BP 114/62; PULSE 78; RESP 16; TEMP 36.9
--- NOTE | 2019-07-04 11:16 | PCM.PN.OB ---
Subjective: Doing well per patient and nursing staff. Ambulating and taking PO without difficulty. Voiding and having bowel movement without difficulty. without concerns. Denies shortness of breath, chest pain, leg pain, vaginal bleeding or clots. Baby with tongue and lip tie. Planning D/C home tomorrow. - Physical Exam Vitals/I&O's: Vital Signs Temp Pulse Resp BP Pulse Ox 98.4 F 78 16 114/62 98 07/04/19 09:00 07/04/19 09:00 07/04/19 09:00 07/04/19 09:00 07/04/19 01:00 Oxygen Delivery Method Room Air Weight: 140 lb Body Mass Index (BMI) 26.4 Intake and Output for Last 24 Hours 07/02/19 07/03/19 07/04/19 23:59 23:59 23:59 Intake Total 4802.5 / 4802.5 Output Total 3950 / 3950 Balance 852.5 / 852.5 General: Alert, Oriented x3, Cooperative HEENT: Atraumatic, PERRLA Neck: Trachea Midline Lungs: Clear to auscultation, Normal air movement, No rhonchi, No wheeze Cardiovascular: Regular rate, Regular Rhythm, No murmurs Abdomen: Bowel Sounds Present, Soft, - - Fundus firm, 3 below U Extremities: No edema Psych/Mental Status: Normal Affect, Appropriate Current Medications Acetaminophen (Tylenol) 1,000 mg PO Q8H PRN PRN Reason: Pain Score 1-3/10 Last Admin: 07/04/19 06:39 Dose: 1,000 mg Documented by: Bisacodyl (Dulcolax) 10 mg RECTAL UD PRN PRN Reason: If no BM Hydrocortisone (Hytone) 1 applic TOPICAL TID PRN PRN; Protocol PRN Reason: Discomfort Naloxone HCl 4 mg/ Dextrose 504 mls @ 0 mls/hr IV .Q0M PRN; Protocol PRN Reason: Respiratory depression Ibuprofen (Motrin) 600 mg PO Q6H PRN PRN PRN Reason: Pain Score 1-3/10 Methylergonovine Maleate (Methergine) 0.2 mg IM X1 PRN PRN Reason: Uterine Atony Naloxone HCl (Narcan) 0.02 mg IV Q1M PRN PRN Reason: RR <10 and pt unresponsive Ondansetron HCl (Zofran) 4 mg IV Q4H PRN PRN PRN Reason: Nausea Oxycodone HCl (Oxyir) 5 - 10 mg PO Q4H PRN PRN PRN Reason: Pain Score 4-10/10 Prochlorperazine Edisylate (Compazine Iv) 10 mg IV Q6H PRN PRN PRN Reason: NAUSEA Senna/Docusate Sodium (Senokot-S, Trixie-Colace) 0 tablet PO DAILY PRN PRN Reason: Constipation Last Admin: 07/03/19 21:05 Dose: 1 tablet Documented by: Simethicone (Mylicon) 80 mg PO PCHS PRN PRN Reason: Indigestion/stomach pain Last Admin: 07/03/19 14:33 Dose: 80 mg Documented by: Sodium Chloride () 5 - 15 ml IV UD PRN PRN Reason: SALINE FLUSH Last Admin: 07/04/19 07:54 Dose: 10 ml Documented by: Medical Necessity - Tobacco Use Smoking Status: Never smoker Assessment/Plan All Active Problems Positive GBS test (Resolved) Active labor at term (Resolved) Shoulder dystocia during labor and delivery, delivered (Resolved) Perineal laceration during delivery, delivered (Resolved) A:POD #2 section P: 1) Routine care 2) Baby with possible tongue and upper lip tie, patient may get appointment with ENT tomorrow. Will wait for discharge tomorrow in am 3) Hgb stable 4) Pain management
[2019-07-04 14:00] VITALS: BP 105/57; PULSE 83; RESP 16; TEMP 36.8
[2019-07-04] MEDS: oxyCODONE 5 MG Tablet PO ×2 (14:15→20:10)
[2019-07-04] MEDS: Ibuprofen 600 MG Tablet PO (18:15)
[2019-07-04 20:00] VITALS: BP 111/63; PULSE 85; RESP 18; TEMP 36.2; O2SAT 100
[2019-07-05] MEDS: Ibuprofen 600 MG Tablet PO ×2 (00:27→08:26)
[2019-07-05 00:57] VITALS: BP 114/63; PULSE 77; RESP 18; TEMP 36.6; O2SAT 98
[2019-07-05 08:00] VITALS: BP 119/55; PULSE 98; RESP 16; TEMP 36.7
[2019-07-05] MEDS: Senna/Docusate Sodium 1 Tablet PO (08:25)
--- NOTE | 2019-07-05 08:52 | DCINST_ITS ---
Discharge Diet: No Restrictions Discharge Activity: Return to Normal Activity, May Not Drive - for 2 weeks, May not drive while taking narcotic pain medications., May Shower, May Take a Tub Bath - in 7 days. May resume sexual activity in: 4-6 weeks Lifting Restrictions: 20 pounds Additional Activity Instructions:: Nothing in the vagina for 4-6 weeks. You may return to work/school in 6 weeks. Call your doctor if your incision/area has: Continuous Slow Oozing, Sudden Increased Bleeding, Increased Pain/ Swelling, Increased Redness, Foul Smelling Discharge Call your doctor if you observe: Fever of 101 or Higher, Using more than one pad per hour - for 2 hours Suture Line Care: Avoid Pulling/Pushing, Avoid Pinching/Bending Cleanse incision/area with: Keep Dressing Clean & Dry Additional Instructions: If you experience any of the following, contact your healthcare provider. * Bleeding that soaks a pad every hour for 2 hours * Fever 100.4 or higher * Unrelieved incision or abdominal pain * Swelling, redness, discharge or bleeding from your incision or episiotomy site * Your incision begins to separate * Problems urinating (including inability to urinate or burning while urinating). * Visual changes * Severe headache * Flu-like symptoms * Pain or redness in one of both of your breasts * Pain, warmth, tenderness or swelling in your legs, especially the calf area * Frequent nausea and vomiting * Symptoms of depression or anxiety If you experience any of the following, call 911 or go to the nearest Emergency Room. * Chest pain * Problems breathing * Seizure activity * Partial or complete paralysis of a body part, slurred speech, weakness or drooping of the face, or a sudden inability to walk or hold your balance Allergies/Adverse Reactions: Allergies cefdinir [From Omnicef] Allergy (Intermediate, Verified 11/02/17 21:07) Hives vancomycin Allergy (Verified 07/02/19 10:15) Hives Medications to take at Discharge Hoi823/Levomefolate/Omega3/Dha [ Plus-Dha Combo Pack] 1 tab PO DAILY 07/02/19 Ibuprofen [Motrin] 800 mg PO TID PRN PRN #60 tab 07/05/19 Oxycodone [Oxyir] 5 mg PO Q6H PRN PRN 5 Days #12 tab 07/05/19 The following prescriptions were given: Ibuprofen [Motrin] 800 mg PO TID PRN PRN #60 tab PRN Reason: Pain Transmission Status: Received by [facility] Oxycodone [Oxyir] 5 mg PO Q6H PRN PRN 5 Days #12 tab PRN Reason: severe pain Transmission Status: Sent to [facility] Follow-Up: Call to make an appointment with your doctor for an incision check in 1-2 weeks. You will also need a 6 week post- follow up appointment. Test results from this visit will be discussed in further detail at your follow- up appointment, if applicable. Please Follow Up With: Mavis Ferris MD - Call to make an appointment for an incision check in 1-2 [phone] When: You will need a post check in 6 weeks. Primary Care Physician: Care Physician,No Primary [Primary Care Provider] -
--- NOTE | 2019-07-05 08:52 | PCM.PN.OB ---
Subjective: pain well controlled, average lochia, no N/V, +BM - Physical Exam Vitals/I&O's: Vital Signs Temp Pulse Resp BP Pulse Ox 97.9 F 77 18 114/63 98 07/05/19 00:57 07/05/19 00:57 07/05/19 00:57 07/05/19 00:57 07/05/19 00:57 Oxygen Delivery Method Room Air Weight: 63.503 kg Body Mass Index (BMI) 26.4 General: Alert, Cooperative, No apparent distress Abdomen: Soft, Non-Distended, Tender - appropriately Extremities: Edema - trace Skin: Incision - bandage clean, dry and intact Current Medications Acetaminophen (Tylenol) 1,000 mg PO Q8H PRN PRN Reason: Pain Score 1-3/10 Last Admin: 07/04/19 06:39 Dose: 1,000 mg Documented by: Bisacodyl (Dulcolax) 10 mg RECTAL UD PRN PRN Reason: If no BM Hydrocortisone (Hytone) 1 applic TOPICAL TID PRN PRN; Protocol PRN Reason: Discomfort Naloxone HCl 4 mg/ Dextrose 504 mls @ 0 mls/hr IV .Q0M PRN; Protocol PRN Reason: Respiratory depression Ibuprofen (Motrin) 600 mg PO Q6H PRN PRN PRN Reason: Pain Score 1-3/10 Last Admin: 07/05/19 08:26 Dose: 600 mg Documented by: Methylergonovine Maleate (Methergine) 0.2 mg IM X1 PRN PRN Reason: Uterine Atony Naloxone HCl (Narcan) 0.02 mg IV Q1M PRN PRN Reason: RR <10 and pt unresponsive Ondansetron HCl (Zofran) 4 mg IV Q4H PRN PRN PRN Reason: Nausea Oxycodone HCl (Oxyir) 5 - 10 mg PO Q4H PRN PRN PRN Reason: Pain Score 4-10/10 Last Admin: 07/04/19 20:10 Dose: 5 mg Documented by: Prochlorperazine Edisylate (Compazine Iv) 10 mg IV Q6H PRN PRN PRN Reason: NAUSEA Senna/Docusate Sodium (Senokot-S, Trixie-Colace) 0 tablet PO DAILY PRN PRN Reason: Constipation Last Admin: 07/05/19 08:25 Dose: 2 tablet Documented by: Simethicone (Mylicon) 80 mg PO PCHS PRN PRN Reason: Indigestion/stomach pain Last Admin: 07/03/19 14:33 Dose: 80 mg Documented by: Sodium Chloride () 5 - 15 ml IV UD PRN PRN Reason: SALINE FLUSH Last Admin: 07/04/19 07:54 Dose: 10 ml Documented by: Medical Necessity - Tobacco Use Smoking Status: Never smoker Assessment/Plan All Active Problems Positive GBS test (Resolved) Active labor at term (Resolved) Shoulder dystocia during labor and delivery, delivered (Resolved) Perineal laceration during delivery, delivered (Resolved) POD#3 doing well routine care ready for d/c
--- NOTE | 2019-07-05 09:14 | CASEMGMT ---
Social Work Assessment (late entry for assessment completed on 07.02.2019) Labor and Delivery Unit Date of Referral: 07.02.2019 Time of Referral: 0830 Referred By: verbal notification by nursing staff Date of Intervention: 07.02.2019 Time of Intervention: 1605 Reason for Referral: maternal history of marijuana use History obtained from: medical records and mother of baby (MOB) Pamela Gay Household composition: MOB, father of baby (FOB), and older child. MOB reports home situation is safe and adequate. Patient's parent/guardian status: MOB and FOB are both 21 years old, together since high school for the last 4 years. FOB is Gideon Yung. MOB denies any form of abuse in relationship with FOB. MOB and FOB now have two children together: baby Wilbert Yung (born 07.02.2019) and daughter Spencer Yung (born 11.03.2017). Medical History: MOB is G2, P1 to 2 after delivering Wilbert. care started early at 4 weeks and regular thereafter. MOB with history of 2 minute and 4 second shoulder dystocia with the of Spencer. Delivered Wilbert via caesarian section. Wilbert weighed 7 pounds 7 ounces at . Apgars 9 and 9 at 1 and 5 minutes of life. Educational Status: MOB graduated high school, reports ability to read, write, and understand what is read. Financial Status: FOB works fulltime at [employer]. Infant Supplies: MOB reports to have needed supplies to get started including a bassinet for baby to sleep in and a car seat. Childcare/Caregiver(s): MOB is primary caregiver. Help from FOB when home. Transportation: No issues and family can help while MOB recovers from surgery. Programs/Agencies Involved: MOB had medical through [facility] only. Children Services/Legal Issues: MOB denies legal issues or history of children services involvement. Behavioral Health Issues: Mental Health History: MOB reports as a teen had anxiety. Reports had the baby blues after Spencer was born, which last briefly for a couple of weeks. MOB denies ever seeking out medicine or counseling for the baby blues and reports feeling emotions leveled out after a week and a half or so. MOB denies any history of thoughts of suicide, planning, intent or past attempts. Substance Use History: MOB denies alcohol use in and reports even when not alcohol is not something that MOB really cares to do. Denies tobacco use. MOB was reportedly vaping CBD oil (with THC) prior to knowledge. MOB reports she quit upon realizing of . MOB denies history of other drug use such as cocaine, heroin, meth, or pills. Family History: No reported history. Drug Screens: maternal screen positive at [facility] appointment on 11.18.2018. Negative a delivery on 07.02.2019. Baby?s urine is negative, and meconium is pending. Family/Social Stressors: Closely spaced pregnancies, but MOB reports was shocked but came to be accepting of this once realized was present. Support Systems: MOB reports to have a positive and strong support system in the form of her mother and sister. MOB reports both identified women are good for practical and emotional support. MOB reports FOB is also a strong support and helpful at home. Depression/Shaken Baby/Safe Sleeping: MOB is aware of safe sleeping and shaken baby prevention. Educated on mood and anxiety disorders given, risk factors discussed, and possible interventions reviewed in case this arises for MOB during this period. ASSESSMENT: Met with MOB alone. MOB was pleasant, cooperative and nondefensive. MOB held good eye contact. MOB repots to have all needed baby supplies, to have adequate support system, to feel happy about the baby and that feels this delivery went more smoothly as compared to first delivery. MOB reports cessation of any THC based substance upon finding out about . Denies intent to use this in the future and identifies that her children are too important. Talked with MOB that children services will likely become involved and check in on the family should the baby?s drug screen come back positive. MOB declined [facility] referral and to this point has not been involved with [facility] but is aware of this service if changes mind. Safe Plan of Care for related to substance use: Abstain from any future use. PLAN: MOB and baby to home. Resources for mood and anxiety disorders given. MOB reports to have access to [facility] resource lists and no need for an additional list from this sba underwriter. No other services requested or indicated. -GERBER Mayberry, OZIEL
[2019-07-05] MEDS: oxyCODONE 5 MG Tablet PO (10:13)
--- NOTE | 2019-07-13 10:03 | DS.PCM_ITS ---
Discharge Date and Diagnosis Date of Admission: 07/02/19 Date of Discharge: 08/04/19 Hospital Course and Treatment Operations: - - primary LTCS Procedures: None Summary of Care Provided: The patient is a 23 year old female who underwent a primary section at 39 weeks gestation due to history of previous shoulder dystocia with previous delivery. The surgery was performed without difficulty. By postoperative day #3 she is examining, urinating tolerating regular diet without difficulty. She was discharged home with routine instructions and prescriptions. She's follow- up in the office in 1-2 and 6 weeks or as needed.[] - Physical Exam Vitals/I&O's: Vital Signs Temp Pulse Resp BP Pulse Ox 98.1 F 98 16 119/55 L 98 07/05/19 08:00 07/05/19 08:00 07/05/19 08:00 07/05/19 08:00 07/05/19 00:57 Oxygen Delivery Method Room Air Weight: 63.503 kg Body Mass Index (BMI) 26.4 Discharge Diet: No Restrictions Discharge Activity: Return to Normal Activity, May Not Drive - for 2 weeks, May not drive while taking narcotic pain medications., May Shower, May Take a Tub Bath - in 7 days. May resume sexual activity in: 4-6 weeks Additional Activity Instructions:: Nothing in the vagina for 4-6 weeks. You may return to work/school in 6 weeks. Call your doctor if your incision/area has: Continuous Slow Oozing, Sudden Increased Bleeding, Increased Pain/ Swelling, Increased Redness, Foul Smelling Discharge Call your doctor if you observe: Fever of 101 or Higher, Using more than one pad per hour - for 2 hours Suture Line Care: Avoid Pulling/Pushing, Avoid Pinching/Bending Cleanse incision/area with: Keep Dressing Clean & Dry Home Medications: Medications to take at Discharge [id number]/Levomefolate/Omega3/Dha [ Plus-Dha Combo Pack] 1 tab PO DAILY 1 09/01/18 Ibuprofen [Motrin] 800 mg PO TID PRN PRN #60 tab 07/05/19 Oxycodone [Oxyir] 5 mg PO Q6H PRN PRN 5 Days #12 tab 07/05/19 Following Prescrptions Were Given to Patient: Ibuprofen [Motrin] 800 mg PO TID PRN PRN #60 tab PRN Reason: Pain Transmission Status: Received by [facility] #[facility] Oxycodone [Oxyir] 5 mg PO Q6H PRN PRN 5 Days #12 tab PRN Reason: severe pain Transmission Status: Received by [facility] Primary Care Physician: Care Physician,No Primary [Primary Care Provider] - Please Follow Up With: Mavis Ferris MD - Call to make an appointment for an incision check in 1-2 [phone] When: You will need a post check in 6 weeks. Medical Necessity - Tobacco Use Smoking Status: Never smoker Meaningful Use Info Meaningful Use Diagnoses (Choose all that apply): None applicable
== END 2019-07-05 12:00 | disposition home or self-care (01) | DRG 540 ==
PROVIDERS: Admitting Provider Obstetrics & Gynecology; Visit Provider Obstetrics & Gynecology
PROC: 10D00Z1 Extraction of Products of Conception, Low, Open Approach (ICD-10-PCS; CPT 59514; principal; 2019-07-02 07:15)
DX: O75.89 Other specified complications of labor and delivery (principal); Z37.0 Single live birth; Z3A.39 39 weeks gestation of pregnancy
CPT/HCPCS: 80307; 85025; 85027; 86850; 86900; 86901; 99218; J7120; A4216; G0378; J2405

== ENCOUNTER 2025-03-30 09:30 | Inpatient (IN) | payer BC, SELFPAY ==
--- NOTE | 2025-03-16 16:56 | PCM.HP.BLA ---
History and Physical Date of Admission: 03/30/25 Expand All Collapse All Pre-Op History and Physical HPI: The patient is a 29 year old female presenting for pre-operative visit. She is scheduled for , for repeat elective cs and salpingectomy on 03/30/25. Procedure discussed along with risks, benefits and complications. Other alternatives discussed for management. Consent form signed? Yes. PAST MEDICAL HISTORY PAST MEDICAL HISTORY Diagnosis Date ? Anemia ? History of marijuana use 11/19/2018 11/19/18 - + tox screen in . Cherrie Kidd APRN.PARAMJITM ? HSV (herpes simplex virus) infection 11/2015 genital lesions ? depression PAST SURGICAL HISTORY PAST SURGICAL HISTORY Procedure Laterality Date ? DELIVERY ONLY 07/02/2019 C/S low transverse CURRENT MEDICATIONS Current Outpatient Medications Medication Sig Dispense Refill ? ferrous sulfate (IRON ORAL) Take by mouth. ? aspirin, enteric coated (ECOTRIN LOW STRENGTH) 81 mg EC tablet Take 1 tablet by mouth once daily. 90 tablet 3 ? PNV no.95/ferrous fum/folic ac ( ORAL) Take by mouth. No current facility-administered medications for this visit. ALLERGIES: Azithromycin, Omnicef [Cefdinir], Penicillins, and Vancomycin PERSONAL HISTORY: SOCIAL HISTORY Social History Tobacco Use ? Smoking status: Never ? Smokeless tobacco: Never Vaping Use ? Vaping status: Never Used Substance Use Topics ? Alcohol use: Not Currently ? Drug use: Never Comment: Per patient FAMILY HISTORY: FAMILY HISTORY FAMILY HISTORY Problem Relation Age of Onset ? Thyroid Mother ? No Known Problems Father ? No Known Problems Sister ? No Known Problems Brother ? Breast Cancer Maternal Grandmother 70 ? Heart Maternal Grandmother ? No Known Problems Maternal Grandfather ? Anxiety disorder Paternal Grandmother ? Prostate Cancer Paternal Grandfather ? No Known Problems Daughter ? No Known Problems Son REVIEW OF SYMPTOMS: negative except as noted above PHYSICAL EXAMINATION: VITALS: Blood pressure 112/64, weight 65.3 kg (144 lb), last menstrual period 06/19/2024. GENERAL: The patient is well nourished, well hydrated in no acute distress. , The patient is oriented to time, place, and person. NECK: full range of motion Abd: gravid, non tender IMPRESSION: @ 37.2 weeks PLAN: repeat cs and salpingectomy at 39 weeks Pt has been counseled on risks/benefits and alternatives of surgery including but not limited to anesthesia, bleeding, infection, injury to pelvic structures including bowel, bladder, ureters and vessels. Pt wishes to proceed with surgery at this time. Pre op instructions reviewed I have reviewed and updated past medical and surgical history, medications and allergies Esha Lynch MD
[2025-03-30] VITALS (20 sets, daily range): BP systolic 98–130; BP diastolic 52–90; PULSE 70–146; RESP 12–24; TEMP 36.3–37.2; O2SAT 96–100; BMI 27.5
[2025-03-30] MEDS: Lactated Ringers 1,000 ML 999 ML IV (10:15)
[2025-03-30 10:41] LABS: Hematocrit 34.4 % (37-47); Hemoglobin 11.8 g/dL (12.0-15.0); Immature Granulocytes Count 0.080 X10^3/uL (0.0-0.0); Mean Corp Hgb Conc 34.3 g/dL (32-36); Mean Corpuscular Volume 86.0 fL (81-99); Mean Platelet Vol. 10.1 fl (6.2-12.0); NRBC Flagged by Analyzer 0 % (0-5); Platelet Count 223 K/mm3 (150-450); RBC Distribution Width CV 13.7 % (11.6-14.6); RBC Distribution Width SD 42.3 fl (35.1-43.9); Red Blood Count 4.00 M/mm3 (4.2-5.4); White Blood Count 10.3 K/mm3 (4.4-11.0)
[2025-03-30] MEDS: Lactated Ringers 1,000 ML 150 ML IV (11:21)
[2025-03-30] MEDS: Gentamicin 800 MG/20 ML Vial 240 MG IV (11:43)
[2025-03-30 11:46] LABS: Syphilis Antibodies Nonreactive (Nonreactive)
[2025-03-30] MEDS: morphine PF (epidural) 5 MG/10 ML Vial IV (11:50)
[2025-03-30] MEDS: fentaNYL 100 MCG/2 ML Ampul 200 MCG IV (12:29)
--- NOTE | 2025-03-30 12:36 | EX.PCM.OBRPT ---
Operative Report (OB) Details Procedure Type: low transverse (and bilateral salpingectomy ) Date of Procedure: 03/30/25 Procedure Start Time: 12:05 Procedure Stop Time: 12:38 Time of Delivery: 12:08 Pre-Operative Diagnosis: Repeat Elective , Desires elective sterilization and Other (39 weeks gestation ) Other Pre-Operative diagnosis: 39 weeks gestation Post-Operative Diagnosis: Same as Pre-operative diagnosis Classification: Scheduled Type of Anesthesia: Spinal Antibiotic Given: Clindamycin 600mg IV x1 and Gentamicin 1.5mg/kg IV x1 Drain: Titus to straight drain Estimated Blood Loss: 600 Fluids Replaced: 800 Findings Description of surgery: After informed consent was obtained the patient was taken the operating room she was given spinal anesthesia. She was then placed in the supine position. She was prepped and draped in the normal sterile fashion. Anesthesia was found to be adequate. At this time a Pfannenstiel skin incision was made with a knife was carried down to the underlying layer of the fascia. The fascial incision was then extended laterally using vasquez scissor. Attention was then turned to the superior aspect of the fascial edge was grasped with 2 straight Margarita clamps tented up and the rectus muscle dissected off sharply. Rectus muscles were then in the midline sharply and peritoneum was entered bluntly. Gentle opposing traction was placed. At this time the vesicouterine peritoneum was identified. Scalpel was used to make a uterine incision in a low transverse fashion. The uterus was then entered bluntly gentle opposing traction was placed to extend this incision. Membranes were ruptured clear. 's head was brought to the uterine incision was delivered atraumatically- loose nuchal x 1 reduced. Infant was vigorous at delivery and delayed cord clamping performed. Cord was clamped and cut was handed to the waiting nursery team. The Placenta was removed from the uterus. The uterus was then removed from the abdominal cavity. The uterus was cleared of all clots and debris using a lap. At this time the uterine incision was reapproximated using #1 Vicryl in a running locked fashion. Hemostasis was appreciated. At this time the left fallopian tube was traced to the fimbriated end 2 Babcocks were placed and the LigaSure device was used to coagulate and ligate along the mesosalpinx. The uterus was then placed back in the intra-abdominal cavity and the same thing was repeated on the right side. Excellent hemostasis from both pedicles were appreciated.. Gutters were cleared of all clots and debris. Uterine incision was reevaluated and noted to be of excellent hemostasis. At this time the peritoneum was grasped with Kellys reapproximated using #2 Vicryl suture in a running fashion. muscle was reapproximated using #2 Vicryl suture in an interrupted mattress suture fashion. Fascia was then reapproximated using #1 Vicryl in a running fashion. Subcu layer was irrigated with NS, reapproximated with #2 0 plain gut suture in an interrupted fashion. Subcu layer was closed using 4-0 Monocryl in a subcu fashion. Dry sterile dressing was applied. Instrument lap needle count correct ?2. Anticipated normal postoperative course. Surgical findings: left paratubal cyst Presentation: Vertex Amniotic Membrane Rupture Type: Artificial Amniotic Fluid Description: Clear Placental Delivery Description: Expressed Placenta Disposition: [facility] Specimen collected: Yes Description of specimen(s) removed: bilateral fallopian tubes Cord Vessel Description: 3 Vessels Cord Entanglement: Around neck x 1, loose Nuchal Cord Compression: Without compression A gender: Male (1 minute): 9 (5 minute): 9 Delayed Cord Clamping: Yes Curtain Feller Blindstitch yard manager: Yes Harbor Pilot: Bony Freire Tasks completed by blood donor unit assistant: Opening & closing, Dissecting tissue and Retracting Additional assistant director of financial aid?: Yes Additional Binder Layer #2: Shalonda clement MS4 Tasks completed by assistant director of financial aid #2: Retracting Additional assistant director of financial aid?: No Complications Complications: No
[2025-03-30] MEDS: Oxytocin 15 Units/NS 250ml 15 UNITS/250 ML IV.SOLN 83 UNITS IV (13:00)
[2025-03-30] MEDS: Ketorolac 30 MG/ML Syringe IV ×2 (13:15→19:06)
[2025-03-30] MEDS: 0.9% Saline Lock 10 ML Syringe IV (13:15)
--- NOTE | 2025-03-30 13:31 | FALS_PTH ---
PATIENT: YUDELKA ARMSTRONG LOC: [facility] U#:[id number] AGE/SX: 29/F ROOM: WP007 RE03/30/[address]: Dr. Esha Steve, MDDOB: 1995 BED: 1 DIS: 04/01/2025 SPEC #: [id number] RECD: 03/30/25 13:40 STATUS: KOLTON KRISTINA #: [id number] ALYSIA: 03/30/25 13:[address]: Esha Steve DEPT: SURGICAL PATHOLOGY RECD BY: Ken Pizano ENTERED: 03/30/25 14:35 SP TYPE: FALL TUBES OTHR DR: Smitha Primary Care Phys Tissues: A - Fallopian tube Procedures: Surgery Specimen Level II HEADER OPERATION: Tubal ligation PRE-OP DIAGNOSIS: Sterilization TISSUE SUBMITTED: A- Bilateral fallopian tube MICROSCOPIC DIAGNOSIS A. Fallopian tubes, bilateral salpingectomies: * Benign fallopian tubes with complete cross sections obtained * Benign paratubal cysts MICROSCOPIC DESCRIPTION Slides are reviewed. GROSS DESCRIPTION A. Received fresh and subsequently placed in formalin labeled with the patient's name and date of . Designated as L c? tube are 2 dark red-purple fimbriated fallopian tubes, each measuring 6.7 x 0.8 cm. Paratubal cyst are present on each fallopian tube, 0.2 cm to 3.9 cm. The tube with the largest paratubal cyst is presumed to be the left fallopian tube per the description on the specimen requisition/container. Roof Slater sections are submitted in 4 cassettes as follows:A1-A2: Fallopian tube, presumed rightA3-A4: Fallopian tube with largest paratubal cyst, presumed left SC 03/31/2025 CPT:34515x7
[2025-03-30 13:44] LABS: Pathology Specimen OB SEE PATHOLOGY REPORT
[2025-03-30] MEDS: Lactated Ringers 1,000 ML 100 ML IV (16:02)
[2025-03-31] MEDS: Ketorolac 30 MG/ML Syringe IV (01:42)
[2025-03-31 02:00] VITALS: BP 100/52; PULSE 62; RESP 16; TEMP 36.6; O2SAT 100
[2025-03-31 05:21] LABS: Hematocrit 29.6 % (37-47); Hemoglobin 10.1 g/dL (12.0-15.0); Mean Corp Hgb Conc 34.1 g/dL (32-36); Mean Corpuscular Volume 86.8 fL (81-99); Mean Platelet Vol. 10.0 fl (6.2-12.0); Platelet Count 222 K/mm3 (150-450); RBC Distribution Width CV 13.7 % (11.6-14.6); RBC Distribution Width SD 42.6 fl (35.1-43.9); Red Blood Count 3.41 M/mm3 (4.2-5.4); White Blood Count 16.4 K/mm3 (4.4-11.0)
[2025-03-31 08:08] VITALS: BP 107/67; PULSE 75; RESP 16; TEMP 36.5; O2SAT 100
--- NOTE | 2025-03-31 08:28 | PCM.PN.OB ---
Subjective Subjective Patient is doing well this morning and offers no complaints. Pain is well-controlled. She is ambulating and voiding without difficulty. She is tolerating a diet without nausea or vomiting. She denies chest pain, shortness of breath, leg pain, lightheadedness, dizziness. Objective Data Objective Data Vital Signs: Vital Signs Temp Pulse Resp BP Pulse Ox O2 Del Method 97.7 F L 75 16 107/67 100 Room Air 03/31/25 08:08 03/31/25 08:08 03/31/25 08:08 03/31/25 08:08 03/31/25 08:08 03/31/25 08:08 Oxygen Delivery Method Room Air Weight: 145 lb 11.609 oz Body Mass Index (BMI) 27.5 Intake & Output: Intake and Output for Last 24 Hours 03/29/25 03/30/25 03/31/25 23:59 23:59 23:59 Intake Total 1781.67 / 1781.67 Output Total 2700 / 3250 1150 / 1150 Balance -918.33 / -1468.33 -1150 / -1150 Lab / Micro Data 03/31/25 05:10 Labs: Laboratory Results - last 24 hr 03/30/25 10:15: WBC 10.3, RBC 4.00 L, Hgb 11.8 L, Hct 34.4 L, MCV 86.0, MCH 29.5, MCHC 34.3, RDW Std Deviation 42.3, RDW Coeff of Ziyad 13.7, Plt Count 223, MPV 10.1, Immature Gran % (Auto) 0.800, Neut % (Auto) 74.5 H, Lymph % (Auto) 16.8 L, [place] % (Auto) 6.4, Eos % (Auto) 1.2, Baso % (Auto) 0.3, Absolute Neuts (auto) 7.7, Absolute Lymphs (auto) 1.73, Nucleated RBC % 0, Syphilis Total Ab Nonreactive, Blood Type O POSITIVE, Antibody Screen NEGATIVE 03/31/25 05:10: WBC 16.4 H, RBC 3.41 L, Hgb 10.1 L, Hct 29.6 L, MCV 86.8, MCH 29.6, MCHC 34.1, RDW Std Deviation 42.6, RDW Coeff of Ziyad 13.7, Plt Count 222, MPV 10.0 Physical Exam Const alert and no apparent distress Constitutional Narrative: nursing baby sitting in a chair General Appearance: comfortable Extremity normal to inspection and no calf tenderness Assessment & Plan (1) Delivery by section: PLAN: Pt doing well. Pain controlled. VSS. AM CBC reviewed. Routine post op care. Dispo: Pt plans discharge tomorrow.
[2025-03-31] MEDS: Senna/Docusate Sodium 1 Tablet PO (08:38)
[2025-03-31 14:00] VITALS: BP 103/67; PULSE 86; RESP 16; TEMP 36.6; O2SAT 100
[2025-03-31 19:55] VITALS: BP 104/64; PULSE 79; RESP 16; TEMP 36.6; O2SAT 99
[2025-04-01 02:47] VITALS: BP 109/68; PULSE 76; RESP 16; TEMP 36.2; O2SAT 97
[2025-04-01 08:12] VITALS: BP 106/68; PULSE 76; RESP 14; TEMP 36.8; O2SAT 99
--- NOTE | 2025-04-01 08:27 | PCM.DC.SUM ---
Providers Date of Admission: 03/30/25 Primary Care Physician: No Primary Care Phys Reason For Visit: CSECTION Diagnosis Discharge Diagnosis (1) Delivery by section: Status: Acute (2) Post-operative pain: Status: Acute Code(s): G89.18 - Other acute postprocedural pain Medications at Discharge Home Medications vit 120-folate 267 mcg tab chew-om3 321 mg-dha 250 mg capsule 1 tab PO DAILY vitamin 07/02/19 ferrous sulfate 325 mg (65 mg iron) tablet (Iron (ferrous sulfate)) 325 mg PO DAILY anemia 03/30/25 acetaminophen 500 mg tablet 1,000 mg (2 x 500 mg) PO Q6H #0 tabs 04/01/25 ibuprofen 600 mg tablet 600 mg PO Q6H #0 tabs 04/01/25 oxycodone 5 mg tablet 5 - 10 mg (1 - 2 x 5 mg) PO Q4H PRN PRN Pain Score 4-10 3 days #14 tabs 04/01/25 sennosides 8.6 mg-docusate sodium 50 mg tablet (Stimulant Laxative Plus) 1 - 2 tab PO DAILY #0 tabs 04/01/25 Hospital Course Operations section Procedures None Summary of Care Provided Minutes Spent on Discharge: 15 Hospital Course: Patient had section. Hospital course was uneventful. Physical Exam Narrative Dressing is dry and intact Const alert and no apparent distress General Appearance: cooperative and comfortable Exam Limitations: no limitations HEENT normocephalic Eyes General Eye: normal appearance of both eyes Neck full ROM General: normal visual inspection Chest Chest: symmetrical chest wall rise Resp normal respiratory effort and normal air movement Effort and Inspection: symmetric chest movement Auscultation: clear to auscultation bilaterally Cardio regular rate and regular rhythm GI normal to inspection, nondistended, normoactive bowel sounds Back/Spine normal ROM Extremity full ROM and no calf tenderness General Extremity: normal exam except as noted Skin no rashes or lesions noted Wound Narrative: Dressing is dry and intact. Neuro CN's II-XII intact bilaterally Psych mental status grossly normal Weight / BMI Weight Weight: 145 lb 11.609 oz Body Mass Index (BMI) 27.5 ABG / Lab / Microbiology Data 03/31/25 05:10 D/C Instructions Discharge Activity: May Drive (2 weeks) and May Shower May resume sexual activity in: 6-8 weeks Weight Bearing Status: Weight bearing as tolerated Lifting Restricted to (Lbs): 25 Call your doctor if your incision/area has: Continuous Slow Oozing, Sudden Increased Bleeding, Increased Pain/ Swelling, Increased Redness, Foul Smelling Discharge and Swelling at the incision site Call your doctor if you observe: Fever of 101 or Higher, Numbness or Tingling, Using more than 1 pad per hour, Shortness of breath, Dizziness, Swelling in the ankles, Chest pain, Calf discomfort and Uncontrolled pain Suture Line Care: Avoid Pulling/Pushing Remove Dressing in: 5 days (Remove yourself or call office and schedule appointment for dressing removal.) DC O2, CPAP, BIPAP Needs Home O2 Discharge instructions: No When: 5 days for dressing removal or 2 weeks for post appointment. Meaningful Use Info Meaningful Use Meaningful Use Diagnoses (Choose all that apply): None applicable Discharge Plan Admission Admit Date/Time: 03/30/25 09:30 Primary Reason for Your Visit: Repeat C/S Attending Provider: Esha Steve Primary Care Provider: Care Physician,No Primary Discharge Orders/Prescriptions Prescriptions: New sennosides-docusate sodium [Stimulant Laxative Plus] 8.6-50 mg Tablet 1 - 2 tab PO DAILY Qty: 0 0RF acetaminophen 500 mg Tablet 1,000 mg PO Q6H Qty: 0 0RF ibuprofen 600 mg Tablet 600 mg PO Q6H Qty: 0 0RF oxycodone 5 mg Tablet 5 - 10 mg PO Q4H PRN PRN (Reason: Pain Score 4-10) 3 Days Qty: 14 0RF Continued [id number] 1 EACH comb carol, tab chew and capsule 1 tab PO DAILY ferrous sulfate [Iron (ferrous sulfate)] 325 mg (65 mg iron) tablet 325 mg PO DAILY Discontinued aspirin [Aspirin Childrens] 81 mg tablet,chewable 1 tab PO DAILY Referrals / Follow Up: Lyn Smiley CNM [Med Staff - Adv Practice Prof] - Care Physician,No Primary [Primary Care Provider] - Disposition Disposition (needs filled in before D/C Order can be placed): Home, Self Care
[2025-04-01] MEDS: Senna/Docusate Sodium 1 Tablet PO (10:17)
[2025-04-01 13:14] VITALS: BP 117/69; PULSE 90; RESP 16; TEMP 37.2; O2SAT 98
--- NOTE | 2025-04-01 13:17 | CASEMGMT ---
Social Work Assessment Labor and Delivery Unit Patient Address: [address] [place] [address] [address] [id number] Phone number: [phone] Date of Referral: 03/30/25 Time of Referral:? 173 Referred By: Dr. Lynch Date of Intervention: ?04/01/25? Time of Intervention:? 1030 Reason for Referral:? hx of anxiety Sw completed chart review and acknowledges maternal mental health history of anxiety. Sw presented to bedside and introduced self to mother of baby (SHAMIKA- Pamela). Also present in room was father of baby (PASQUALE- Thad), maternal grandma, and SHAMIKA's two older children. When sw introduced self everyone left the room aside from MOB. Sw explained reason for sw involvement and completed sw assessment. History obtained from: medical records, MOB Household composition: Currently residing in the family home is PASQUALE WICK, SHAMIKA's two older children from a former relationship: Spencer (7) and Wilbert (5). SHAMIKA denies any problems with their home, stating that it is safe and secure. baby to be included in the home when ready for discharge. Patient's parent/guardian status:? SHAMIKA states that she and PASQUALE have been together for 5 years, they got in February. SHAMIKA states that she and PASQUALE met each other through her former partner who is the father of her older two children. MOB reports that this is PASQUALE's first child. SHAMIKA denies any domestic violence or intimate partner violence with PASQUALE. ? Medical History: ?SHAMIKA is 29 year old female who is 4, para 2- now 3 following labor and delivery of . SHAMIKA received routine care during with [facility]. SHAMIKA presented to hospital for scheduled repeat on 03/30/25 at 39 weeks gestation. Baby boy named Angel Luis Baez, was born weighing 8lb 14oz with apgars of 9 and 9 at one and five minutes of life, respectfully. SHAMIKA states that she is breast feeding and baby will be followed by [facility] in [place] for pediatrics. Educational Status:? 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 No problems with reading, learning or comprehension. Financial Status: Both parents area gainfully employed outside of the home. 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 Supplies:?? All necessary baby supplies obtained, including: car seat, safe sleep space, clothes, diapers and wipes. Childcare/Caregiver(s):? SHAMIKA states that she will be the primary caregiver to baby along with PASQUALE. When both parents are working she will have childcare assistance with her mom. Transportation:??Both parents have their drivers license along with reliable means of transportation. Programs/Agencies Involved: ???Parents are not connected to any community agencies that provide them with financial assistance. Children Services/Legal Issues:??? No prior involvement with children services, no issues or concerns warranting referral to be made at this time. Behavioral Health Issues: ??Mental Health History: MOB states that PASQUALE does not have any mental health problems or diagnoses. MOB states that she has struggles with anxiety in the past. MOB states that she did not realize it at the time, but looking back feels like she did struggle with after her first daughter was born. MOB states that she did not have a lot of support at that time, and was extremely tearful, anxious, quicker to feel agitated and overwhelmed. MOB reports that when her son was born, she was also overwhelmed and believed it was due to having two children so close in age. MOB states that at this time she does not feel down, anxious or overwhelmed. MOB states that she is worried about being quicker to anger when she is at home with her kids. Sw and MOB discussed symptoms that are to be expected and symptoms that would warrant a conversation with her OBGYN or a mental health professional. ??? Substance Use History:?MOB denies substance use prior to and during . ? Family History:?MOB states that she and PASQUALE both have some family members who have problems abusing alcohol. Sw encouraged MOB to utilize healthy and safe coping mechanisms opposed to seeking comfort from using drugs or alcohol. MOB expressed understanding. ? Drug Screens: ?No drug screens observed while completing chart review. ? Family/Social Stressors:? MOB denies any issues, stressors or concerns, stating that she is happy that baby is here and she is excited to be Support Systems: MOB states that PASQUALE is her biggest support person, along with her mom, paternal grandma and MOB's sister. Depression/Shaken Baby/Safe Sleeping:? Sw educated MOB on signs and symptoms of baby blues and depression and anxiety. MOB states that she feels more knowledgeable at this time to recognize symptoms. MOB states that if she were to struggle she feels as though FOB would be able to recognize that and would know how to help and support her. MOB reports to feeling calm, relaxed and at ease at this time. MOB denies feeling down, anxious, overwhelmed or on edge. Sw educated MOB on shaken baby prevention and ABCs of safe sleep, MOB expressed understanding. ASSESSMENT:? MOB and baby admitted following labor and delivery. MOB with history of anxiety, stating that she feels as though she has had generalized anxiety for a lot of her life. While talking with MOB she presented calm and relaxed. MOB states that she is not currently connected to any community mental health resources and is not prescribed any medications to help her manage her anxiety. MOB was talkative throughout conversation. MOB was sitting comfortably beside bed and holding baby. MOB provided appropriate and loving hands on care to baby. MOB reports to having all necessary baby items and natural supports in place. Although MOB has history of anxiety she does not appear to be anxious, but in calm nature at this time. PLAN:? No other services requested or indicated. MOB and baby to be discharged when medically ready. Parents were provided literature regarding: signs and symptoms of baby blues and mood and anxiety disorders, Help Me Grow, shaken baby prevention, ABCs of safe sleep and a list of county resources that are available for them should any needs present themselves. Linus Rosas, PULMONARY SPECIALIST, CLINICAL RESEARCH TECHNICIAN
--- NOTE | 2025-04-06 12:57 | NURSING ---
Follow up phone call made. Denies any pain, headaches, visual changes or baby blues. States her bleeding is minimal and her c/s incision looks good and has no S&S of infection. States is going well and denies any questions or concerns.
== END 2025-04-01 14:50 | disposition home or self-care (01) | DRG 785 ==
PROVIDERS: Admitting Provider Obstetrics & Gynecology; Referring Provider Obstetrics & Gynecology; Visit Provider Obstetrics & Gynecology
PROC: 10D00Z1 Extraction of Products of Conception, Low, Open Approach (ICD-10-PCS; CPT 59514; principal; 2025-03-30 11:45)
DX: O34.211 Maternal care for low transverse scar from previous cesarean delivery (principal); N83.8 Other noninflammatory disorders of ovary, fallopian tube and broad ligament; O34.83 Maternal care for other abnormalities of pelvic organs, third trimester; O99.892 Other specified diseases and conditions complicating childbirth; O99.02 Anemia complicating childbirth; O69.81X0 Labor and delivery complicated by cord around neck, without compression, not applicable or unspecified; Z37.0 Single live birth; Z30.2 Encounter for sterilization; Z3A.37 37 weeks gestation of pregnancy; Z87.59 Personal history of other complications of pregnancy, childbirth and the puerperium
CPT/HCPCS: 59025; 59050; 85025; 85027; 86780; 86850; 86900; 86901; 88302; 99221; A4216; G0378; J2405